=== PATIENT | female | born 1995 | race African-American/Black ===

== ENCOUNTER 2017-05-13 21:18 | Emergency (ER) | payer MEDICAID ==
[~2017-05-13] VITALS: Ht 144.8 cm; Wt 52.0 kg
[2017-05-13] MEDS ORDERED: KETOROLAC 60MG/2ML VIAL IM ONE (23:00)
[2017-05-14] MEDS ORDERED: ACETAMINOPHEN 500MG TABLET PO ONE
[2017-05-14 01:35] VITALS: BP 122/68
== END 2017-05-14 02:03 | disposition home or self-care (01) ==
LOC: ER 21:18
DX: J02.8 Acute pharyngitis due to other specified organisms (principal)
CPT/HCPCS: 99282

== ENCOUNTER 2018-08-10 13:58 | Emergency (ER) | payer MEDICAID ==
[~2018-08-10] VITALS: Ht 144.8 cm; Wt 53.0 kg
[2018-08-10 14:00] VITALS: BP 135/96
== END 2018-08-10 22:23 | disposition left against medical advice (07) ==
LOC: ER 14:28
DX: R06.02 Shortness of breath (principal); Z53.21 Procedure and treatment not carried out due to patient leaving prior to being seen by health care provider
CPT/HCPCS: 93005